=== PATIENT | female | born 1975 | race Caucasian/White ===

== ENCOUNTER → 2016-06-08 | Outpatient (CLI) | payer BC ==
[~2016-06-08] MED LIST: CALC500C70 PO; FLUO10CA48 PO; HYDR-5688 PO; MULT-506 PO; NITR-5 PO
--- NOTE | 2016-06-08 12:39 | MAMMOGRAPHY REPORT ---
BILATERAL DIGITAL SCREENING MAMMOGRAM TOMOSYNTHESIS WITH CAD: 06/08/2016 CLINICAL HISTORY: Routine screening. Patient has no complaints. TECHNIQUE: Breast tomosynthesis in addition to standard 2D mammography was performed. Current study was also evaluated with a Computer Aided Detection (CAD) system. COMPARISON: Comparison is made to exams dated: 04/28/2015 mammogram - [facility] and 01/20/2011 mammogram. BREAST COMPOSITION: The tissue of both breasts is heterogeneously dense, which may obscure small ma sses. FINDINGS: There is a 6 mm nodular asymmetry in the superior posterior left breast, only seen on the MLO view with equivocal persistent mass on the corresponding tomosynthesis images. Although this c ould represent a benign lymph node or normal overlapping fibrolinear glandular tissue, additional sp ot compression tomosynthesis images and possibly ultrasound are recommended. No other suspicious mass, architectural distortion or cluster of microcalcifications is seen bilater ally. IMPRESSION: ACR BI-RADS CATEGORY 0: INCOMPLETE EVALUATION: NEED ADDITIONAL IMAGING EVALUATION The 6 mm nodular asymmetry in the superior posterior left breast needs additional evaluation. The patient will be called to schedule an appointment. Approximately 10% of breast cancers are not detected with mammography. A negative mammographic repor t should not delay biopsy if a clinically suggestive mass is present. Gayle Mcelroy M.D. ay/:06/08/2016 11:13:58 [employer]: Natalia MURRAY(Seth)(Roland), [facility] letter sent: Addl Imaging 0 BI-RADS Code: ACR BI-RADS Category 0: Incomplete Evaluation: Need Additional Imaging Evaluation
== END | disposition home or self-care (01) ==
LOC: C.MAMM 10:02
PROVIDERS: ATTEND Family Medicine
DX: Z12.31 Encounter for screening mammogram for malignant neoplasm of breast (principal); N64.9 Disorder of breast, unspecified

== ENCOUNTER 2016-07-08 08:04 | Emergency (ER) | payer BC, OTHER ==
[~2016-07-08] VITALS: Ht 165.1 cm; Wt 63.1 kg
[2016-07-08 08:16] VITALS: TEMP 36.8; Ht 165.1 cm; Wt 63.1 kg
[2016-07-08] MEDS ORDERED: CALC500C70 PO (09:10)
[2016-07-08] MEDS ORDERED: FLUO10CA48 PO (09:10)
[2016-07-08] MEDS ORDERED: MULT-506 PO (09:10)
[2016-07-08] MEDS ORDERED: NITR-5 PO (09:10)
[2016-07-08] MEDS ORDERED: MoRPHine SULFATE 4 MG/ML 1 ML CARP\\VIAL IV STA ×2 (09:17→11:47)
[2016-07-08] MEDS ORDERED: ONDANSETRON INJ 2 MG/ML 2 ML VIAL IV STA (09:17)
[2016-07-08] MEDS ORDERED: SODIUM CHLORIDE 0.9% 1000ML 1,000 ML IV STA (09:17)
[2016-07-08 09:29] LABS: BASO % 0.8 %; BASO ABS # 0.03 K/uL (0-0.2); COMPLETE YES; EOS % 2.5 %; HEMATOCRIT 39.1 % (37-47); LYMPH % 28.9 %; LYMPH ABS # 1.14 K/uL (1.2-3.4); MEAN CELL VOLUME 89.9 fL (80-100); MEAN CORPUSCULAR HEMOGLOBIN 29.4 pg (25-34); MEAN CORPUSCULAR HGB CONC 32.7 g/dl (32-36); MEAN PLATELET VOLUME 11.2 fL (7.4-10.4); MONO % 7.1 %; NEUT % 60.7 %; PLATELET COUNT 218 K/uL (130-400); RED BLOOD COUNT 4.35 M/uL (4.2-5.4); WHITE BLOOD COUNT 3.94 K/uL (4.8-10.8)
[2016-07-08] MEDS ORDERED: OPTIRAY 320 IV PRN (09:30)
[2016-07-08 09:40] LABS: CALCIUM 8.7 mg/dl (8.5-10.1); CREATININE 0.97 mg/dl (0.60-1.20); MAGNESIUM 2.2 mg/dl (1.8-2.4); POTASSIUM 4.1 mmol/L (3.5-5.1)
[2016-07-08 09:43] LABS: ALB/GLOB RATIO 1.1 (0.9-2)
[2016-07-08 10:25] LABS: URINE APPEARANCE CLEAR (CLEAR); URINE BILIRUBIN NEG (NEG); URINE COLOR YELLOW; URINE EPITHELIAL CELL AUTO >30 /lpf (0-5); URINE NITRITE NEG (NEG); URINE PH 8.5 (4.5-7.5); URINE SPECIFIC GRAVITY 1.021 (1.000-1.030); UROBILINOGEN NEG (NEG); ZZUR CULT IF INDIC CLEAN CATCH NO
[2016-07-08 10:26] LABS: MANUAL MICROSCOPIC REQUIRED? NO; REVIEW REQ? NO
--- NOTE | 2016-07-08 11:53 | DIAGNOSTIC IMAGING REPORT ---
ULTRASOUND OF THE PELVIS CLINICAL HISTORY: Right pelvic pain. COMPARISON STUDY: Pelvic ultrasound dated 10/26/2015. TECHNIQUE: Real-time, grayscale, and color flow sonography of the pelvis is performed both transabdominally and endovaginally. Images are reviewed in the transverse and longitudinal planes. FINDINGS: Uterus: The retroverted uterus is normal in size and echotexture, measuring 8.3 x 3.8 x 5.4 cm. Endometrium: The endometrium is normal in appearance, and the endometrial stripe is normal in thickness measuring up to 0.5 cm. Ovaries: The right ovary is normal in size and morphology, measuring 4.3 x 2.2 x 3.9 cm. The left ovary was not visualized and is reported surgically absent. There are right ovarian follicles normal Doppler waveforms are shown within the right ovary. Pelvis: There is trace free fluid in the cul-de-sac. No concerning adnexal lesion is seen. IMPRESSION: 1. Unremarkable sonographic assessment of the uterus and right ovary. 2. The left ovary was not visualized and is reported surgically absent. 3. There is trace and likely physiologic free fluid in the cul-de-sac. Electronically signed by: Roberto Carlos Dejesus M.D. 07/08/2016 11:52 AM Dictated Date/Time: 07/08/2016 11:50 AM
--- NOTE | 2016-07-08 12:50 | DIAGNOSTIC IMAGING REPORT ---
CT ABD/PELVIS IV AND ORAL CONT CLINICAL HISTORY: RLQ abd pain COMPARISON STUDY: None. TECHNIQUE: Following the IV administration of 118 mL of Optiray-320, CT scan of the abdomen and pelvis was performed from the lung bases to the proximal femurs. Images are reviewed in the axial, sagittal, and coronal planes. IV contrast was administered without complication. CT DOSE: 299.05 mGy.cm FINDINGS: Lower chest: There is a pectus excavatum deformity. There are minor dependent atelectatic changes. Liver: The contrast-enhanced liver is normal in size, contour, and attenuation. There is no intrahepatic biliary ductal dilatation. The hepatic veins and portal veins are patent. Gallbladder: Unremarkable. Spleen: Normal in size and attenuation. Pancreas: Unremarkable. Adrenal glands: Unremarkable. Kidneys: There is symmetric renal cortical enhancement. The kidneys are normal in size without hydronephrosis. Bowel: There are no transition zones indicate bowel obstruction. The appendix appears normal. There is no acute diverticulitis. Peritoneum: There is no intraperitoneal free air or abdominal ascites. Vasculature: The abdominal aorta is normal in course and caliber. Adenopathy: None. Pelvic viscera: The bladder, and pelvic viscera are unremarkable. Skeletal structures: There is soft tissue nodularity involving the anterior abdominal wall subjacent to the umbilicus. This may represent a postsurgical keloid scar. This remains similar to the preceding examination. IMPRESSION: 1. No evidence of bowel obstruction. No evidence of free air 2. Normal appendix 3. No evidence of acute diverticulitis 4. Stable 2 cm soft tissue lesion involving the anterior abdominal wall subjacent to the umbilicus. This may represent a postsurgical scar. Electronically signed by: Joel Alfred M.D. 07/08/2016 12:49 PM Dictated Date/Time: 07/08/2016 12:43 PM
[2016-07-08] MEDS ORDERED: MoRPHine SULFATE 2 MG/ML CARP IV STA (13:19)
[2016-07-08] MEDS ORDERED: HYDR-5688 PO (13:24)
--- NOTE | 2016-07-08 13:25 | EMERGENCY ROOM VISIT NOTE ---
History First contact with patient: 08:23 Chief Complaint: ABDOMINAL PAIN Stated Complaint: ABDOMINAL PAIN ON RIGHT SIDE Nursing Triage Summary: Right sided low abd pain, nausea. History of Present Illness The patient is a 41 year old female who presents to the Emergency Department by private vehicle for evaluation of her RIGHT lower quadrant abdominal pain. She reports that she developed symptoms yesterday. She's had persistent pain for the last several hours. Her symptoms initially waxed and waned in nature. She reports no fevers or chills. She is felt nauseated without vomiting. She reports a prior history of hysterectomy with LEFT-sided oophorectomy. She still has her RIGHT ovary. The patient rates her current discomfort as a 4/10. She is tried nothing [id number] for symptoms to this point. She denies any headaches, dizziness, light headedness, chest pain, palpations, short of breath, hemoptysis, vomiting, hematochezia, melena, hematuria, or dysuria. Review of Systems A complete 10-point Review of Systems was discussed with the patient, with pertinent positives and negatives listed in the History of Present Illness. All remaining Review of Systems questions can be considered negative unless otherwise specified. Social History Smoking Status: Former Smoker Smokeless Tobacco Use: No Drug Use: none Marital Status: Housing Status: lives with family Current/Historical Medications Scheduled Calcium/Vitamin D (Os-Cholo 500 Plus D), 1 TAB PO DAILY Fluoxetine (Prozac), 10 MG PO PRN Multivitamin (Multivitamin), 1 TAB PO DAILY Nitrofurantoin Monohyd Macrocr (Macrobid), 100 MG PO BID Scheduled PRN Hydrocodone/Acetaminophen 5MG/325MG (Erie 5MG/325MG), 1-2 TABLET PO Q4H PRN for Pain Allergies Coded Allergies: No Known Allergies (Unverified , 07/08/16) Physical Exam Vital Signs Date Time Temp Pulse Resp B/P Pulse Ox O2 Delivery O2 Flow Rate FiO2 07/08/16 13:42 60 18 98/62 98 07/08/16 12:59 62 18 93/62 97 Room Air 07/08/16 11:44 59 18 109/64 98 Room Air 07/08/16 09:36 59 18 104/65 99 Room Air 07/08/16 08:16 36.8 61 16 109/73 98 Room Air Pain Rating (0-10): 4 Physical Exam VITAL SIGNS - Vital signs and nursing notes were reviewed. GENERAL - 41-year-old female appearing her stated age who is in no acute distress. Communicates well with provider and answers questions appropriately. LUNGS - Chest wall symmetric without accessory muscle use, intercostals retractions, or central cyanosis. Normal vesicular breath sounds CTA B/L. No wheezes, rales, or rhonchi appreciated. CARDIAC - RRR with S1/S2. No murmur, rubs, or gallops appreciated. ABDOMEN - Abdominal contour flat and without pulsations or visible masses. BS normoactive all four quadrants. Moderate tenderness to palpation appreciated in the RIGHT lower quadrant. No guarding. No Rebound Tenderness. Negative Rovsing' s. Negative Lewis's. No palpable masses, hepatosplenomegaly, or ascites noted. PSYCH - A&Ox3 and cooperates fully with examiner. Pt is very pleasant and interacts well with examiner. Medical Decision & Procedures ER Provider Diagnostic Interpretation: Radiological imaging and reports were reviewed by myself. Radiologist's Interpretation as follows: CT ABD/PELVIS IV AND ORAL CONT CLINICAL HISTORY: RLQ abd pain COMPARISON STUDY: None. TECHNIQUE: Following the IV administration of 118 mL of Optiray-320, CT scan of the abdomen and pelvis was performed from the lung bases to the proximal femurs. Images are reviewed in the axial, sagittal, and coronal planes. IV contrast was administered without complication. CT DOSE: 299.05 mGy.cm FINDINGS: Lower chest: There is a pectus excavatum deformity. There are minor dependent atelectatic changes. Liver: The contrast-enhanced liver is normal in size, contour, and attenuation. There is no intrahepatic biliary ductal dilatation. The hepatic veins and portal veins are patent. Gallbladder: Unremarkable. Spleen: Normal in size and attenuation. Pancreas: Unremarkable. Adrenal glands: Unremarkable. Kidneys: There is symmetric renal cortical enhancement. The kidneys are normal in size without hydronephrosis. Bowel: There are no transition zones indicate bowel obstruction. The appendix appears normal. There is no acute diverticulitis. Peritoneum: There is no intraperitoneal free air or abdominal ascites. Vasculature: The abdominal aorta is normal in course and caliber. Adenopathy: None. Pelvic viscera: The bladder, and pelvic viscera are unremarkable. Skeletal structures: There is soft tissue nodularity involving the anterior abdominal wall subjacent to the umbilicus. This may represent a postsurgical keloid scar. This remains similar to the preceding examination. IMPRESSION: 1. No evidence of bowel obstruction. No evidence of free air 2. Normal appendix 3. No evidence of acute diverticulitis 4. Stable 2 cm soft tissue lesion involving the anterior abdominal wall subjacent to the umbilicus. This may represent a postsurgical scar. ULTRASOUND OF THE PELVIS CLINICAL HISTORY: Right pelvic pain. COMPARISON STUDY: Pelvic ultrasound dated 10/26/2015. TECHNIQUE: Real-time, grayscale, and color flow sonography of the pelvis is performed both transabdominally and endovaginally. Images are reviewed in the transverse and longitudinal planes. FINDINGS: Uterus: The retroverted uterus is normal in size and echotexture, measuring 8.3 x 3.8 x 5.4 cm. Endometrium: The endometrium is normal in appearance, and the endometrial stripe is normal in thickness measuring up to 0.5 cm. Ovaries: The right ovary is normal in size and morphology, measuring 4.3 x 2.2 x 3.9 cm. The left ovary was not visualized and is reported surgically absent. There are right ovarian follicles normal Doppler waveforms are shown within the right ovary. Pelvis: There is trace free fluid in the cul-de-sac. No concerning adnexal lesion is seen. IMPRESSION: 1. Unremarkable sonographic assessment of the uterus and right ovary. 2. The left ovary was not visualized and is reported surgically absent. 3. There is trace and likely physiologic free fluid in the cul-de-sac. Laboratory Results 07/08/16 09:00 Red Blood Count 4.35, Mean Corpuscular Volume 89.9, Mean Corpuscular Hemoglobin 29.4, Mean Corpuscular Hemoglobin Concent 32.7, Mean Platelet Volume 11.2, Neutrophils (%) (Auto) 60.7, Lymphocytes (%) (Auto) 28.9, Monocytes (%) (Auto) 7.1, Eosinophils (%) (Auto) 2.5, Basophils (%) (Auto) 0.8, Neutrophils # (Auto) 2.39, Lymphocytes # (Auto) 1.14, Monocytes # (Auto) 0.28, Eosinophils # (Auto) 0.10, Basophils # (Auto) 0.03 07/08/16 09:00 Test 07/08/16 08:50 07/08/16 09:00 Urine Color YELLOW Urine Appearance CLEAR (CLEAR) Urine pH 8.5 (4.5-7.5) Urine Specific [place] 1.021 (1.000-1.030) Urine Protein NEG (NEG) Urine Glucose (UA) NEG (NEG) Urine Ketones NEG (NEG) Urine Occult Blood TRACE (NEG) Urine Nitrite NEG (NEG) Urine Bilirubin NEG (NEG) Urine Urobilinogen NEG (NEG) Urine Leukocyte Esterase NEG (NEG) Urine WBC (Auto) 1-5 /hpf (0-5) Urine RBC (Auto) 5-10 /hpf (0-4) Urine Hyaline Casts (Auto) 1-5 /lpf (0-5) Urine Epithelial Cells (Auto) >30 /lpf (0-5) Urine Bacteria (Auto) NEG (NEG) White Blood Count 3.94 K/uL (4.8-10.8) Red Blood Count 4.35 M/uL (4.2-5.4) Hemoglobin 12.8 g/dL (12.0-16.0) Hematocrit 39.1 % (37-47) Mean Corpuscular Volume 89.9 fL (80-100) Mean Corpuscular Hemoglobin 29.4 pg (25-34) Mean Corpuscular Hemoglobin Concent 32.7 g/dl (32-36) Platelet Count 218 K/uL (130-400) Mean Platelet Volume 11.2 fL (7.4-10.4) Neutrophils (%) (Auto) 60.7 % Lymphocytes (%) (Auto) 28.9 % Monocytes (%) (Auto) 7.1 % Eosinophils (%) (Auto) 2.5 % Basophils (%) (Auto) 0.8 % Neutrophils # (Auto) 2.39 K/uL (1.4-6.5) Lymphocytes # (Auto) 1.14 K/uL (1.2-3.4) Monocytes # (Auto) 0.28 K/uL (0.11-0.59) Eosinophils # (Auto) 0.10 K/uL (0-0.5) Basophils # (Auto) 0.03 K/uL (0-0.2) RDW Standard Deviation 45.4 fL (36.4-46.3) RDW Coefficient of Variation 13.8 % (11.5-14.5) Immature Granulocyte % (Auto) 0.0 % Immature Granulocyte # (Auto) 0.00 K/uL (0.00-0.02) Anion Gap 7.0 mmol/L (3-11) Est Creatinine Clear Calc Drug Dose 68.7 ml/min Estimated GFR () 84.1 Estimated GFR (Non- 72.5 BUN/Creatinine Ratio 15.0 (10-20) Calcium Level 8.7 mg/dl (8.5-10.1) Magnesium Level 2.2 mg/dl (1.8-2.4) Total Bilirubin 0.7 mg/dl (0.2-1) Aspartate Amino Transf (AST/SGOT) 18 U/L (15-37) Alanine Aminotransferase (ALT/SGPT) 21 U/L (12-78) Alkaline Phosphatase 68 U/L (45-117) Total Protein 8.0 gm/dl (6.4-8.2) Albumin 4.2 gm/dl (3.4-5.0) Globulin 3.8 gm/dl (2.5-4.0) Albumin/Globulin Ratio 1.1 (0.9-2) Lipase 184 U/L (73-393) Medications Administered Medications (Trade) Dose Ordered Sig/Dong Route Start Time Stop Time Status Last Admin Dose Admin Sodium Chloride (Nss 1000ml) 1,000 ml @ 999 mls/hr Q1H1M STAT IV 07/08/16 09:17 07/08/16 10:17 DC 07/08/16 09:30 999 MLS/HR Morphine Sulfate (MoRPHine SULFATE INJ) 4 mg NOW STAT IV 07/08/16 09:17 07/08/16 09:20 DC 07/08/16 09:30 4 MG Ondansetron HCl (Zofran Inj) 4 mg NOW STAT IV 07/08/16 09:17 07/08/16 09:20 DC 07/08/16 09:30 4 MG Morphine Sulfate (MoRPHine SULFATE INJ) 4 mg NOW STAT IV 07/08/16 11:47 07/08/16 11:48 DC 07/08/16 12:00 4 MG Morphine Sulfate (MoRPHine SULFATE INJ) 2 mg NOW STAT IV 07/08/16 13:19 07/08/16 13:20 DC 07/08/16 13:38 2 MG ED Course Patient was seen and evaluated by myself. Labs were drawn, saline lock in place. The patient was hydrated with a 1000 mL normal saline bolus. She was treated with 4 mg morphine and 4 mg Zofran for pain. Pelvic ultrasound and CT of the abdomen and pelvis with IV and oral contrast was ordered. The patient complains of increasing pain upon returning from ultrasound. She was treated with an additional 4 mg morphine. Laboratory results demonstrate no acute leukocytosis, worrisome anemia, or bandemia. The patient has no significant electrolyte abnormalities. Urinalysis does not suggest infection. Ultrasound and CT results as above. Laboratory results and imaging studies were reviewed with the patient who acknowledges understanding. The patient is complaining of mild discomfort this point. She was provided an additional 2 mg morphine for pain. The patient was encouraged to follow up with her primary care provider in 24-48 hours for repeat abdominal exam. She was educated on worrisome symptoms for return visit to the emergency department. Patient discharged home afebrile and in good condition. Medical Decision Given the patient's presentation and stated complaints, I did elect to perform the above-mentioned workup. The patient presents today with ongoing pain to the RIGHT lower quadrant. She has no fever. There is no leukocytosis. Urinalysis does not suggest infection. She has no other acute findings per labs. Her imaging studies are essentially unremarkable. The patient's pain was adequately controlled the emergency department. She will follow closely with her primary care provider for repeat abdominal exam in 24-48 hours. She will return to the emergency department sooner in the setting of any changing or worsening symptoms. Patient discharged home afebrile and in good condition. In the evaluation and treatment of this patient, the following differential diagnoses were considered: Appendicitis, Diverticulitis, Diverticulosis, Colitis , Ischemic Colitis, Inflammatory Bowel Disease, Irritable Bowel Disease, Ovarian Torsion, Ectopic, , Kidney Stone, Pyelonephritis, Hydronephrosis, Cholecystitis, Ascending Cholangitis, Choledocholithiasis, GERD. Impression Primary Impression: Lower abdominal pain Departure Information Dispostion Home / Self-Care Condition GOOD Prescriptions Hydrocodone/Acetaminophen 5MG/325MG (Erie 5MG/325MG) Tab 1-2 TABLET PO Q4H Y for Pain, #16 TAB For Initial Treatment Prov: Charbel Granger PA-C 07/08/16 Referrals Dali Min D.O. (PCP) Patient Instructions Abdominal Pain - [facility], [facility] Additional Instructions You have been treated in the Emergency Department your Abdominal Pain. Laboratory results and imaging studies have ruled out any emergent causes for your abdominal pain which would warrant admission or surgery. You have been prescribed Erie to be used for pain control. This is a narcotic medication. You cannot drive or consume alcohol while on this medicine. This medicine should only be used for pain that cannot be controlled with over-the- counter pain medicines. For pain control, you can use the following [id number] medicines (if >12 yo): - Regular strength (325mg/tab) Tylenol (acetaminophen) 2 tabs every 4-6 hours as needed. Do not exceed 12 tablets in a 24 hour period. Avoid taking more than 4 grams (4000 mg) of Tylenol per day. This includes any other sources of acetaminophen you may take on a regular basis. - Regular strength (200 mg/tab) Advil (ibuprofen) 1-2 tabs every 4-6 hours as needed. Do not exceed a dose of 3200 mg per day. Drink plenty of water and stay well hydrated. As with any trip to the Emergency Department, you should follow-up with your Primary Care Provider from today's visit. Return to the emergency department if your symptoms persist despite treatment plan outlined above or if the following symptoms occur: increased fevers, chills , worsening nausea/vomiting, blood in your stool or urine.
[2016-07-08 13:42] VITALS: BP 98/62; PULSE 60; O2SAT 98
== END 2016-07-08 13:44 | disposition home or self-care (01) ==
LOC: C.EDB 08:06 → C.EDA 13:44
DX: R10.31 Right lower quadrant pain (principal); R11.0 Nausea; Z90.710 Acquired absence of both cervix and uterus; Z87.891 Personal history of nicotine dependence; Z79.899 Other long term (current) drug therapy

== ENCOUNTER → 2017-04-13 | Outpatient (CLI) | payer BC ==
[~2017-04-13] MED LIST changes: -HYDR-5688 PO
--- NOTE | 2017-04-13 16:01 | DIAGNOSTIC IMAGING REPORT ---
PELVIC ULTRASOUND, TRANSABDOMINAL AND TRANSVAGINAL HISTORY: Diffuse abdominal pain. OVARIAN ENDOMETRIOSIS COMPARISON: Abdomen and pelvis CT 07/08/2016. Pelvic ultrasound 07/08/2016. FINDINGS: Uterus: 7.6 x 5.6 x 4.5 cm. The uterus is retroflexed. Endometrial stripe: 9 mm in thickness. Right ovary: Normal in size and demonstrates normal color flow. A few small follicles/simple cysts with the largest measuring 2.1 cm. Left ovary: Surgically absent. Miscellaneous:Trace pelvic free fluid. This is likely physiologic. IMPRESSION: 1. The uterus and right ovary are within normal limits. 2. The left ovary is surgically absent. Electronically signed by: Julio C Rios M.D. 04/13/2017 4:00 PM Dictated Date/Time: 04/13/2017 3:56 PM
== END | disposition home or self-care (01) ==
LOC: C.ULTR 14:09
PROVIDERS: ATTEND Obstetrics & Gynecology Gynecologic Oncology
DX: N80.1 Endometriosis of ovary (principal); Z90.721 Acquired absence of ovaries, unilateral

== ENCOUNTER → 2017-05-31 | Outpatient (CLI) | payer BC | END | disposition home or self-care (01) | LOC: C.PAPS 11:10 | PROVIDERS: ATTEND Physician Assistant | DX: Z01.419 Encounter for gynecological examination (general) (routine) without abnormal findings (principal) ==

== ENCOUNTER → 2017-06-14 | Outpatient (CLI) | payer OTHER ==
--- NOTE | 2017-06-14 15:31 | MAMMOGRAPHY REPORT ---
BILATERAL DIGITAL SCREENING MAMMOGRAM TOMOSYNTHESIS WITH CAD: 06/14/2017 CLINICAL HISTORY: Routine screening. Patient has no complaints. TECHNIQUE: Breast tomosynthesis in addition to standard 2D mammography was performed. Current study was also evaluated with a Computer Aided Detection (CAD) system. COMPARISON: Comparison is made to exams dated: 06/20/2016 ultrasound, 06/20/2016 mammogram, 06/08/2016 m ammogram, 04/28/2015 mammogram - [facility], and 01/20/2011 mammogram. BREAST COMPOSITION: The tissue of both breasts is heterogeneously dense, which may obscure small mas ses. FINDINGS: The parenchymal pattern is unchanged. No developing mass, architectural distortion or clus ter of suspicious microcalcifications is seen in either breast. IMPRESSION: ACR BI-RADS CATEGORY 2: BENIGN There is no mammographic evidence of malignancy. A 1 year screening mammogram is recommended. The pa tient will receive written notification of the results. Approximately 10% of breast cancers are not detected with mammography. A negative mammographic report should not delay biopsy if a clinically suggestive mass is present. Gayle Mcelroy M.D. ay/:06/14/2017 10:57:38 Health Services Director: Tania MURRAY(Seth)(Roland), [facility] letter sent: Normal 1/2 BI-RADS Code: ACR BI-RADS Category 2: Benign
== END | disposition home or self-care (01) ==
LOC: C.MAMM 09:29
PROVIDERS: ATTEND Obstetrics & Gynecology
DX: Z12.31 Encounter for screening mammogram for malignant neoplasm of breast (principal)